=== PATIENT | female | born 1985 | race Caucasian/White ===

== ENCOUNTER 2018-09-01 23:11 | Emergency (ER) | payer OTHER, SELFPAY ==
[2018-09-01] MEDS ORDERED: Adacel (T-DAP) 0.5 ML SYRINGE ONE (23:21)
[2018-09-01] MEDS ORDERED: Bacitracin Zinc 1 Packet ONE (23:28)
== END 2018-09-01 23:42 | disposition home or self-care (01) ==
LOC: SCSER 23:11
DX: S91.115A Laceration without foreign body of left lesser toe(s) without damage to nail, initial encounter (principal); S50.811A Abrasion of right forearm, initial encounter; W22.03XA Walked into furniture, initial encounter
CPT/HCPCS: 90471; 90715